=== PATIENT | female | born 1965 | race Caucasian/White ===

== ENCOUNTER 2020-05-23 15:08 | Emergency (ER) | payer OTHER ==
[2020-05-23 15:16] VITALS: BP 148/78; PULSE 76; TEMP 98.6; BMI 38.7
--- NOTE | 2020-05-23 15:16 | PDOC ---
Rapid Medical Evaluation Time Seen by Provider: 05/23/20 15:09 Medical Evaluation: Allergies Allergy/AdvReac Type Severity Reaction Status Date / Time No Known Allergies Allergy Unverified 07/28/15 19:07 05/23/20 15:09 I performed a brief in-person evaluation of this patient. Pt is a 54 y/o female with history of thyroid disease and HTN who presents with L knee and R shoulder pain after a fall at [employer] yesterday. She denies hitting her head or any LOC. Pertinent physical exam findings: walking with a cane, decreased ROM L knee from pain, speaking in full sentences, moving R shoulder without significant difficulty I have ordered the following: Left knee, right shoulder xrays Patient to proceed to ED for further evaluation. Discharge Disposition - Diagnosis Fall - Referrals - Patient Instructions - Post Discharge Activity
--- NOTE | 2020-05-23 16:01 | PDOC ---
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 Patient states she was walking outside of [place] yesterday, stepped on a stone which caused her to twist her right ankle and landed directly on her knees, abdomen and chest. Denies head strike, headache, nausea, vomiting, chest pain, shortness of breath, back pain. Patient laid on the ground for approximately 20 to 25 minutes before standing up. She has been ambulating slowly, went home, applied ice, elevated left leg and took ibuprofen 1600 mg last night. Last dose of ibuprofen 800 mg was approximately 4 hours ago. ROS: as above PE: GENERAL: well-appearing, NAD, obese HEAD: NCAT EYES: Pupils equal, round and reactive to light, sclera anicteric, conjunctiva clear ENT: pharynx: no erythema, no exudate, uvula midline NECK: supple CHEST: nontender RESP: clear, no w/r/r CARDIO: rrr, no m/g/r ABD: +BS, soft, nontender, non distended BACK: no midline spinal ttp, no CVAT EXTREMITIES: Normal range of motion, minimal swelling noted to left knee, no laxity, limited range of motion to right shoulder due to pain, no obvious deformity of right shoulder, no swelling noted, no bony tenderness to palpation NEUROLOGICAL: Normal speech, normal gait SKIN: Superficial abrasions noted to bilateral knees, warm, Dry Is this a multiple visit Asthma Patient?: No Past History - Medical History Allergies/Adverse Reactions: Allergies Allergy/AdvReac Type Severity Reaction Status Date / Time No Known Allergies Allergy Unverified 05/23/20 15:13 Home Medications: Ambulatory Orders Unobtainable 07/28/15 COPD: No - Psycho-Social/Smoking History Smoking History: Unknown if ever smoked *Physical Exam - Vital Signs Last Vital Signs Temp Pulse Resp BP Pulse Ox 98.6 F 76 18 148/78 99 05/23/20 15:14 05/23/20 15:14 05/23/20 15:14 05/23/20 15:14 05/23/20 15:14 Medical Decision Making - Medical Decision Making 05/23/20 16:05 54-year-old female history of hypertension, hypothyroidism, 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 Patient states she was walking outside of [place] yesterday, stepped on a stone which caused her to twist her right ankle and landed directly on her knees, abdomen and chest. Denies head strike, headache, nausea, vomiting, chest pain, shortness of breath, back pain. Patient laid on the ground for approximately 20 to 25 minutes before standing up. She has been ambulating slowly, went home, applied ice, elevated left leg and took ibuprofen 1600 mg last night. Last dose of ibuprofen 800 mg was approximately 4 hours ago. Right shoulder and left knee x-rays unremarkable for any acute fracture Patient ambulating with her own cane Left knee Dylon wrap placed Copies of x-ray results provided to patient Advised patient to follow-up with PMD Discharge - Discharge Information Problems reviewed: Yes Clinical Impression/Diagnosis: Fall Qualifiers: Encounter type: initial encounter Qualified Code(s): W19.XXXA - Unspecified fall, initial encounter Condition: Stable Disposition: HOME - Admission No - Follow up/Referral Referrals: Eugenia Morin [Primary Care Provider] - - Patient Discharge Instructions Additional Instructions: Rest, elevate, apply ice, take ibuprofen 600 mg every 6 hours as needed Follow-up with your doctor within 1 week Continue to use your cane to assist you with ambulation - Post Discharge Activity
== END 2020-05-23 16:17 | disposition home or self-care (01) ==
LOC: JERFT 15:08
DX: M25.562 Pain in left knee (principal)
CPT/HCPCS: 73030-TC-RT-FY; 73562-TC-LT-FY; 99284-25

== ENCOUNTER 2025-06-24 18:39 | Emergency (ER) | payer OTHER ==
[2025-06-24 18:54] VITALS: BP 98/75; PULSE 76; RESP 18; TEMP 98.8; BMI 29.0
[2025-06-24] MEDS ORDERED: KETOROLAC TROMETHAMINE 60 MG/2 ML VIAL ONE (20:42)
[2025-06-24] MEDS: KETOROLAC TROMETHAMINE 60 MG/2 ML VIAL IM ONE (20:46)
== END 2025-06-24 23:26 | disposition home or self-care (01) ==
LOC: FER 18:39
PROC: 3E0233Z Introduction of Anti-inflammatory into Muscle, Percutaneous Approach (ICD-10-PCS; principal; 2025-06-24)
DX: M17.11 Unilateral primary osteoarthritis, right knee (principal); M25.561 Pain in right knee; M25.461 Effusion, right knee
CPT/HCPCS: 93971-TC-RT; 99285-25